=== PATIENT | female | born 2000 | race African-American/Black ===

== ENCOUNTER 2021-06-15 15:13 | Outpatient (CLI) | payer MEDICAID ==
[~2021-06-15] VITALS: Ht 175.3 cm; Wt 117.0 kg
[2021-06-15 15:05] VITALS: BP 199/92; PULSE 102; TEMP 98.2
[2021-06-15 15:45] LABS: BASO % 0.5 % (0.0-2.0); EOS % 0.7 % (0.0-4.0); GRAN # 4.1 K/mm3 (1.4-6.5); GRAN % 67.6 % (42.2-75.2); HEMOGLOBIN 11.5 g/dl (12.5-16.0); LYMPH # 1.5 K/mm3 (1.2-3.4); LYMPH % 25.3 % (20.0-51.0); MEAN CELL VOLUME 83 fl (80.0-100.0); MEAN CORPUSCULAR HEMOGLOBIN 28 pg (27-31); MEAN CORPUSCULAR HGB CONC 33 g/dl (33.0-37.0); MEAN PLATELET VOLUME 9.7 fl (7.4-10.4); MONO # 0.4 K/mm3 (0.1-0.6); MONO % 5.7 % (1.7-9.3); PLATELET COUNT 298 K/mm3 (130-400); RED BLOOD COUNT 4.15 M/mm3 (4.10-5.30); REDCELL DISTRIBUTION WIDTH-CV 13.2 % (11.5-14.5)
[2021-06-15 15:46] LABS: HEMATOCRIT 34.4 % (37.0-47.0)
[2021-06-15 16:01] LABS: ALBUMIN 2.7 gm/dL (3.5-5.0); BILIRUBIN,TOTAL 0.5 mg/dL (0.2-1.2); CREATININE, serum 0.66 mg/dL (0.57-1.11); POTASSIUM 3.5 mmol/L (3.5-4.5); TOTAL PROTEIN 7.4 gm/dL (6.2-8.1)
[2021-06-15 16:30] VITALS: BP 192/83; PULSE 97; TEMP 98.6
[2021-06-15 17:00] VITALS: BP 190/85; PULSE 96; TEMP 98.6
[2021-06-15 17:30] VITALS: BP 189/78; PULSE 90; TEMP 98.6
[2021-06-15 18:00] VITALS: BP 183/73; PULSE 89; TEMP 98.6
[2021-06-15 18:30] VITALS: BP 180/78; PULSE 82; TEMP 98.6
[2021-06-15] MEDS ORDERED: ASPIRIN E.C. 8181 MG PO (18:51)
[2021-06-15] MEDS ORDERED: [UNRECOGNIZED DRUG - OTHER] PO (18:51)
[2021-06-15] MEDS ORDERED: INFLECTRA100 MG IV (18:52)
[2021-06-15] MEDS ORDERED: PRENATAL TABLET PO (18:54)
[2021-06-15] MEDS ORDERED: VITAMIN D 400400 IU PO (18:56)
== END 2021-06-15 18:57 | disposition home or self-care (01) ==
LOC: EUO 15:13
PROVIDERS: Internal Medicine Gastroenterology
DX: Z79.899 Other long term (current) drug therapy (principal)
CPT/HCPCS: J1200; J7050; Q5103

== ENCOUNTER 2021-11-12 14:04 | Outpatient (CLI) | payer MEDICAID ==
[~2021-11-12] VITALS: Ht 175.3 cm; Wt 116.0 kg
[~2021-11-12 14:04] MED LIST: ASPIRIN E.C. 8181 MG PO; INFLECTRA100 MG IV; PRENATAL TABLET PO; VITAMIN D 400400 IU PO; [UNRECOGNIZED DRUG - OTHER] PO
[2021-11-12 14:53] LABS: BASO % 0.7 % (0.0-2.0); EOS # 0.1 K/mm3 (0.0-0.7); EOS % 2.4 % (0.0-4.0); GRAN # 3.2 K/mm3 (1.4-6.5); GRAN % 59.3 % (42.2-75.2); HEMOGLOBIN 10.6 g/dl (12.5-16.0); LYMPH # 1.6 K/mm3 (1.2-3.4); LYMPH % 29.5 % (20.0-51.0); MEAN CELL VOLUME 77 fl (80.0-100.0); MEAN CORPUSCULAR HEMOGLOBIN 23 pg (27-31); MEAN CORPUSCULAR HGB CONC 31 g/dl (33.0-37.0); MEAN PLATELET VOLUME 9.8 fl (7.4-10.4); MONO # 0.4 K/mm3 (0.1-0.6); MONO % 7.9 % (1.7-9.3); PLATELET COUNT 407 K/mm3 (130-400); RED BLOOD COUNT 4.53 M/mm3 (4.10-5.30); REDCELL DISTRIBUTION WIDTH-CV 15.9 % (11.5-14.5)
[2021-11-12 14:54] VITALS: BP 119/82; PULSE 88; TEMP 97.4
[2021-11-12 14:54] LABS: HEMATOCRIT 34.7 % (37.0-47.0)
[2021-11-12 15:20] VITALS: BP 88/63; PULSE 69
[2021-11-12 15:24] LABS: ALBUMIN 3.4 gm/dL (3.5-5.0); BILIRUBIN,TOTAL 0.4 mg/dL (0.2-1.2); CREATININE, serum 0.87 mg/dL (0.57-1.11); POTASSIUM 4.1 mmol/L (3.5-4.5); TOTAL PROTEIN 8.2 gm/dL (6.2-8.1)
[2021-11-12 15:50] VITALS: BP 109/76; PULSE 68; TEMP 98.3
[2021-11-12 16:20] VITALS: BP 96/67; PULSE 70
--- NOTE | 2021-11-12 16:25 | NUR ---
GAVE AMARI QURESHI REPORT ON THIS PT.
[2021-11-12 17:00] VITALS: BP 88/63; PULSE 80
[2021-11-12 17:30] VITALS: BP 113/80; PULSE 80
== END 2021-11-12 18:02 ==
LOC: EUO 14:04
PROVIDERS: Internal Medicine Gastroenterology
DX: K50.811 Crohn's disease of both small and large intestine with rectal bleeding (principal)
CPT/HCPCS: J1200; J7050; Q5103